=== PATIENT | male | born 1970 | race Caucasian/White ===

== ENCOUNTER → 2019-09-29 | Outpatient (CLI) | payer OTHER ==
[~2019-09-29] MED LIST: ASPIRIN EC81 M1 PO; IBUPROFEN 800800 M1 PO; MULTIVITAMINS PO; TOPROL XL25 MG PO
[2019-09-29 08:46] LABS: HEMATOCRIT 44.7 % (42.0-52.0); HEMOGLOBIN 15.3 gm/dL (14.0-18.0); MCH 29.5 pg (26.0-34.0); MCHC 34.3 g/dL (28.0-37.0); MCV 85.8 fL (80.0-100.0); RBC 5.21 mil/uL (4.50-6.00); WBC 4.1 thou/uL (4.0-11.0)
[2019-09-29 09:00] LABS: ALBUMIN 4.1 g/dL (3.4-5.0); CALCIUM 9.5 mg/dL (8.5-10.1); CREATININE 1.1 mg/dL (0.7-1.3); POTASSIUM 4.7 mmol/L (3.5-5.1); TOTAL BILIRUBIN 1.1 mg/dL (<0.1-1.0); TOTAL PROTEIN 7.1 g/dL (6.4-8.2)
== END ==
LOC: LABMALL 08:10 → CAT 08:10
PROVIDERS: Internal Medicine Cardiovascular Disease
DX: I48.91 Unspecified atrial fibrillation (principal)

== ENCOUNTER 2019-11-14 06:39 | Inpatient (IN) | payer OTHER ==
[~2019-11-14] VITALS: Ht 180.3 cm; Wt 74.9 kg
[2019-11-14 07:14] VITALS: BP 133/75
[2019-11-14 07:21] LABS: ABSOLUTE NEUTROPHILS 2.2 thou/uL (1.4-8.2); BASOPHILS 0.7 % (0.0-2.0); HEMATOCRIT 44.8 % (42.0-52.0); HEMOGLOBIN 15.2 gm/dL (14.0-18.0); LYMPHOCYTES 27.5 % (24.0-44.0); MCH 28.9 pg (26.0-34.0); MCV 85.1 fL (80.0-100.0); MONOCYTES 6.7 % (1.0-8.0); PLATELET COUNT 187 thou/uL (150-400); POLYS 62.1 % (36.0-66.0); RBC 5.27 mil/uL (4.50-6.00); RDW 13.7 % (10.5-14.5); WBC 3.5 thou/uL (4.0-11.0)
[2019-11-14] MEDS ORDERED: DILTIAZEM ER180 M2 PO (07:24)
[2019-11-14] MEDS ORDERED: ELIQUIS5 MG PO (07:27)
[2019-11-14 07:35] LABS: ALBUMIN 4.2 g/dL (3.4-5.0); CREATININE 1.1 mg/dL (0.7-1.3); POTASSIUM 3.9 mmol/L (3.5-5.1); TOTAL BILIRUBIN 0.8 mg/dL (<0.1-1.0); TOTAL PROTEIN 7.5 g/dL (6.4-8.2)
[2019-11-14 07:44] LABS: INR 1.1; PROTIME 10.9 Seconds (9.3-11.4)
[2019-11-14 12:05] VITALS: BP 114/84
--- NOTE | 2019-11-14 13:10 | NUR ---
PT ORIENTED TO ROOM AND UINIT, BED LOW AND LOCKED, SIDE RAILS UPX3, CALL LIGHT IN REACH AND TELE APPLIED. WILL CONTINUE TO ASSESS. FREQUENT VITAL ON PAPER FLOW SHEET.
[2019-11-14 15:00] VITALS: BP 120/70
--- NOTE | 2019-11-14 15:11 | NUR ---
PT OFF BEDREST AND RODOLFO CABA. PT WISHES TO TALK TO WEIGHTS AND MEASURES INSPECTOR BEFOR SIGNING CONSENT FOR PROCEDURE IN AM.
--- NOTE | 2019-11-14 15:46 | NUR ---
DR. SNEED INSTRUCT NO NEED FOR FREQUENT VITAL OR FREQUENT GROIN ASSESSMENT AT THIS POINT S/P INSTRUMENT TESTER VENOUS PUNCTURE BILAT GROINS.
[2019-11-14 20:09] VITALS: BP 111/70
[2019-11-15] VITALS (12 sets, daily range): BP systolic 108–1069; BP diastolic 64–81
--- NOTE | 2019-11-15 04:28 | NUR ---
Pt. rested quietly at intervals during the night when checked on during frequent rounds. He offers no c/o pain or discomfort. Bilateral groin sites are dry and intact.
[2019-11-15 05:58] LABS: HEMATOCRIT 41.6 % (42.0-52.0); HEMOGLOBIN 14.2 gm/dL (14.0-18.0); MCH 29.2 pg (26.0-34.0); MCV 85.8 fL (80.0-100.0); RBC 4.85 mil/uL (4.50-6.00); RDW 13.6 % (10.5-14.5)
[2019-11-15 06:10] LABS: CALCIUM 8.8 mg/dL (8.5-10.1); CREATININE 1.2 mg/dL (0.7-1.3)
--- NOTE | 2019-11-15 10:27 | CATHLAB ---
[facility] [place] [address] INVASIVE PROCEDURE REPORT Name: BECCA MCCABE Room #: 208-P ADM IN M.R.#: [id number] Admission: 11/15/19 Attend Phys: Gurinder Barreto MD Discharge: Date of : 70 Report #: [id number] THIS REPORT FOR: cc: FAM - No family physician/PCP FAM - No family physician/PCP Fabian Barragan MD ~ APPROVED REPORT Study performed: 11/15/2019 07:55:58 Patient Details Patient Status: In-Patient Room #: The patient is a 49 year-old male Event Personnel Fabian Barragan Financial Operations Clerk, Nawaf Babin RN, Clare, Amanda Monitor, Minnie Ruiz RTR Scrub Procedures Performed Art Access - R femoral artery* 07324 Initial Mod Sed Same Phys/QHP Gr5y [id number] Left Heart Cath w/or w/o Coronaries [id number] [facility] Hemostasis with Manual pressure Indication Arrhythmia, Atrial fibrillation, Underwent an EP study for atrial fibrillation, 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 Procedure Narrative The patient was brought urgently to the Cardiac Catheterization Laboratory and was prepped and draped in a sterile manner. The Right Groin^ was infiltrated with 1% Lidocaine subcutaneous anesthesia. A PINNACLE 4FR Sheath #[id number] sheath was inserted into the RFA^. Coronary angiography was performed using coronary diagnostic catheters. The right coronary system was accessed and visualized with a JR 4 catheter. The left coronary system was accessed and visualized with a JL 4 catheter. The left ventricle was accessed and visualized with a Pigtail catheter. Left ventricular/Aortic Valve gradient assessed via catheter pullback. Left ventriculogram was performed in MEYER projection. Hemostasis was obtained with manual pressure following sheath removal without any complications. The patient tolerated the procedure well and there were no complications associated with the procedure. There was no hematoma. [facility] [address] [place] [address] INVASIVE PROCEDURE REPORT Name: BECCA MCCABE Room #: 208-P [facility] IN M.R.#: [id number] Admission: 11/15/19 Attend Phys: Gurinder [facility] Discharge: Date of : 70 Report #: [id number] Intraoperative Conscious Sedation Sedation start time: 08:10 Case end Time: 08:34 Fentanyl 100 mcg Versed 2 mg Fluoro Time: 2.90 minutes Dose: DAP 2492.00 cGycm2 396 mGy Contrast Type and Amount: Omnipaque 85 ml Coronary Angiography The patient's coronary anatomy is right dominant. Diagnostic Cath Left Main Left main artery is a large-caliber vessel, angiographically normal. LAD The LAD has ectatic regions in the proximal and mid segments. Traverses the anterior wall and wraps around the apex. This vessel is patent with no flow-limiting lesions. Diagonal 1 Small-caliber vessel, appears angiographically normal. Diagonal 2 Small-caliber vessel, appears angiographically normal. Circumflex The proximal segment is ectatic. OM1 This is a moderate-sized caliber vessel, supplies several branches as it travels down the lateral wall. This vessel is patent with no flow-limiting lesions. Right Coronary The RCA is a dominant vessel, has an ectatic segment in the proximal region. This vessel is patent with no flow-limiting lesions. R PDA This vessel is patent with no flow-limiting lesions. RPLV This vessel is patent with no flow-limiting lesions. Left Ventriculography The left ventricle is normal in size with normal contractility. The left ventricular ejection fraction is estimated to be 55-60%. Hemodynamics The aortic pressure is 104/73 mmHg with a mean of 85 mmHg. The left ventricular pressure is 113/8 mmHg with a mean of mmHg. The left ventricular end diastolic pressure is 17 mmHg. Conclusion 1. Ectatic segments noted in the epicardial vessels. 2. No evidence for obstructive disease. [facility] [address] [place] [address] INVASIVE PROCEDURE REPORT Name: BECCA MCCABE Room #: 208-P [facility] IN M.R.#: [id number] Admission: 11/15/19 Attend Phys: Gurinder Barreto Discharge: Date of : 70 Report #: [id number] 3. Normal LV systolic function. 4. Recommend risk factor management. <ELECTRONICALLY SIGNED> By: Fabian Barragan MD 11/15/19 1025 1025 1025 Fabian Barragan MD /INF
--- NOTE | 2019-11-15 17:38 | NUR ---
RECEIVED PT'S CARE AROUND 0715; PT. ON BED; A0X4; NO C/O PAIN; R & L GROIN AREA INTACT; NO HEMATOMA; RECEIVED CALLED FROM CARDIAC CATH AROUND 0730; AM MEDICATION GIVEN EARLIER; GONE FOR PROCEDURE BEFORE 0800; RETURN BACK BEFORE 0900; R. GROIN AREA C/D/I; NO HEMATOMA; EDUCATED ABOUT HOLDING PRESSURE WHEN COUGHING; BED REST FOR 3H; D/C TINEO AFTER BED REST; AROUND 1320; PT. ABLE TO VOID 400 ML AFTER D/C TINEO; NO HEMATOMA THROUGH THE AFTERNOON; SR ON THE MONITOR; ASSESSMENT CHARGED; FOLLOWING POC; WILL PASS ON REPORT;
[2019-11-16] VITALS (13 sets, daily range): BP systolic 103–116; BP diastolic 63–76
--- NOTE | 2019-11-16 03:26 | NUR ---
ASSESSMENT DOCUMENTED.PT BEEN RESTING IN NO ACUTE DISTRESS.A/OX4.VSS.POST CARDIC CATH,RIGHT GROIN W/O HEMATOMA OR ACTIVE BLEEDING.UP AD INGRID TO BR.NPO AFTER MIDNOC FOR POSSIBLE ABLATION.SR/SB/1DEG ON MONITOR..DENIES CHEST PAIN OR ANY PAIN.WILL CONT TO MONITOR PER POC.
[2019-11-16 05:40] LABS: HEMATOCRIT 39.3 % (42.0-52.0); HEMOGLOBIN 13.4 gm/dL (14.0-18.0); MCH 29.3 pg (26.0-34.0); MCHC 34.2 g/dL (28.0-37.0); MCV 85.8 fL (80.0-100.0); RBC 4.58 mil/uL (4.50-6.00); RDW 13.3 % (10.5-14.5); WBC 5.7 thou/uL (4.0-11.0)
[2019-11-16 06:01] LABS: CALCIUM 8.8 mg/dL (8.5-10.1); CREATININE 1.1 mg/dL (0.7-1.3); POTASSIUM 3.7 mmol/L (3.5-5.1)
--- NOTE | 2019-11-16 19:43 | NUR ---
RECEIVED PT'S CARE AROUND 0710; PT. ON BED; AOX4; MANUFACTURING DESIGN ENGINEER NURSE RECEIVED CALL FROM HOLDING; AM MEDICATION GIVEN EARLIER; NO C/O PAIN; GONE FOR PROCEDURE BEFORE 0800; PT. BACK AFTER 1500; R & L SIDE INTANTC; NO HEMATOMA; C/O PAIN OVER SHOULDER; PER REPORT PAIN MEDICATION GIVEN BEFORE ARRIVAL; PT. ST. DECREASE PAIN; DROWSY; EDUCATED ABOUT BED REST FOR 6H; HOLDING PRESSURE IF COUGHING; ST. UNDERSTANDING; VS WNL; C/O PAIN LATER AFTERNOON OVER KNEES; REFUSED PAIN MEDICATION; ST. PAIN IS DUE TO WEATHER CHANGE; THROUGH THE AFTERNOON NO HEMATOMA; SR ON THE MONITOR; ASSESSMENT CHARGED; FOLLOWING POC; PASSED ON REPORT;
[2019-11-17 04:11] VITALS: BP 98/60
--- NOTE | 2019-11-17 05:26 | NUR ---
PT C/O PAIN TO CHEST AREA,HOLDING LEFT CHEST.PT DENIES SOA OR ANY OTHER ASSOCIATED SYMPTOMS BUT STATED IT FEELS LIKE PAIN HE FEELS WHEN HE IS GETTING OUT OF NORMAL HEART RHYTHM.ON MONITOR.NSR.EKG COMPLETED,DR MCGHEE NOTIFIED OF THE EKG RESULTS,PER DR MCGHEE PAIN COULD BE FROM ABLATION,PT UPDATED ON 'S RECOMMENDATION.
[2019-11-17 08:00] VITALS: BP 103/63; BP 107/72
--- NOTE | 2019-11-17 08:44 | EKG ---
[facility] [place] [address] ELECTROCARDIOGRAM REPORT Name: BECCA MCCABE Room #: 208-P ADM IN M.R.#: [id number] Admission: 11/15/19 Attend Phys: Gurinder Barreto MD Discharge: Date of : 70 Report #: [id number] THIS REPORT FOR: cc: MELANY - Veronica family physician/PCP MELANY - Veronica family physician/PCP Feng Cagle MD [facility] ~ THIS REPORT FOR: //name// [facility] Test Date: 2019-11-17 Test Time: 05:04:49 Pat Name: BECCA MCCABE Department: Room: 208 P Gender: M Sheet Metal Welder: MWPATY : 1970 Requested By: Gurinder Barreto Order Number: [id number] MD: Feng Cagle Measurements Intervals [place] Rate: 62 P: 71 WY: 206 QRS: 80 QRSD: 89 T: 46 QT: 411 QTc: 418 Interpretive Statements Sinus rhythm Borderline prolonged WY interval Compared to ECG 04/07/2011 09:18:21 Sinus bradycardia no longer present Electronically Signed On 11-17-2019 8:43:04 CDT by Feng Cagle [email or web address] <ELECTRONICALLY SIGNED> By: Feng Cagle MD, [facility] 11/17/19 0843 0504 0504 Feng Cagle MD, [facility] /EPI
--- NOTE | 2019-11-17 09:32 | 2DMMODE ---
[facility] [address] [place] [address] 2 D/M-MODE ECHOCARDIOGRAM Name: BECCA MCCABE Room #: 208-P ADM IN M.R.#: [id number] Admission: 11/15/19 Attend Phys: Gurinder Barreto MD Discharge: Date of : 70 Report #: [id number] THIS REPORT FOR: cc: FAM - No family physician/PCP FAM - No family physician/PCP Feng Cagle MD [facility] ~ APPROVED REPORT Study performed: 11/17/2019 08:49:55 EXAM: Limited 2D, Doppler, and color-flow Echocardiogram Patient Location: Bedside Room #: 208 Status: routine BSA: 1.92 HR: 69 bpm BP: 98/60 mmHg Rhythm: NSR Other Information Study Quality: Adequate Indications Post ablation, hx afib 2D Dimensions RVDd: 28.42 mm IVSd: 8.89 (7-11mm) LVOT Diam: 23.25 (18-24mm) LVDd: 41.17 mm PWd: 8.02 (7-11mm) Ascending Ao: 30.56 (22-36mm) LVDs: 28.90 (25-40mm) Aortic Root: 33.08 mm IVC: 25.00 mm Volumes Left Atrial Volume (Systole) Single Plane 4CH: 21.75 mL Single Plane 2CH: 36.70 mL LA ESV Index: 19.00 mL/m2 Aortic Valve AoV Peak Farhad.: 1.14 m/s AO Peak Gr.: 5.23 mmHg LVOT Max P.83 mmHg LVOT Max V: 0.98 m/s BRYANT Vmax: 3.63 cm2 Mitral Valve [facility] [address] [place] [address] 2 D/M-MODE ECHOCARDIOGRAM Name: BECCA MCCABE Room #: 208-P [facility] IN [facility].#: [id number] Admission: 11/15/19 Attend Phys: Gurinder Barreto Discharge: Date of : 70 Report #: [id number] E/A Ratio: 1.9 MV Decel. Time: 244.78 ms MV E Max Farhad.: 0.97 m/s MV A Farhad.: 0.52 m/s MV PHT: 70.99 ms Pulmonary Valve PV Peak Farhad.: 0.82 m/s PV Peak Gr.: 2.68 mmHg Tricuspid Valve TR Peak Farhad.: 2.34 m/s RAP Estimate: 10.00 mmHg TR Peak Gr.: 21.95 mmHg PA Pressure: 32.00 mmHg Left Ventricle The left ventricle is normal size. There is normal left ventricular wall thickness. The left ventricular systolic function is normal. The left ventricular ejection fraction is within the normal range. LVEF is 60%. The left ventricular diastolic function is normal. Right Ventricle The right ventricle is normal size. The right ventricular systolic function is normal. Atria The left atrium size is normal. The right atrium size is normal. Aortic Valve The aortic valve is normal in structure. No aortic regurgitation is present. There is no aortic valvular stenosis. Mitral Valve The mitral valve is normal in structure. Trace to mild mitral regurgitation. No evidence of mitral valve stenosis. Tricuspid Valve The tricuspid valve is normal in structure. Trace to mild tricuspid regurgitation. PAP is estimated at 25 mmHg. Pulmonic Valve Pulmonic valve is not well visualized. Trace pulmonic regurgitation. Great Vessels The aortic root is normal in size. IVC is dilated and collapses [facility] [place] [address] 2 D/M-MODE ECHOCARDIOGRAM Name: BECCA MCCABE Room #: 208-P ADM IN .R.#: [id number] Admission: 11/15/19 Attend Phys: Gurinder Barreto Discharge: Date of : 70 Report #: [id number] >50% with inspiration. Pericardium There is no pericardial effusion. <Conclusion> Abbreviated echocardiogram 1. Normal echocardiogram with Doppler. Ejection fraction 60%. 2. Pulmonary artery pressure of 25 mmHg. 3. No pericardial effusion. <ELECTRONICALLY SIGNED> By: Feng Cagle MD, [facility] 11/17/19929 9 0930 Feng Cagle MD, FACC /INF
[2019-11-17 12:10] VITALS: BP 104/67
[2019-11-17 14:20] VITALS: BP 155/55
--- NOTE | 2019-11-17 14:28 | D ---
[facility] [place] [address] DISCHARGE SUMMARY Name: BECCA MCCABE Room #: 208-P ADM IN M.R.#: [id number] Admission: 11/15/19 Attend Phys: Gurinder Barreto MD Discharge: Date of : 70 Report #: [id number] THIS REPORT FOR: cc: MELANY - No family physician/PCP MELANY - No family physician/PCP Gurinder Barreto MD ~ THIS REPORT FOR: //name// CC: MELANY physician/PCP Gurinder Barreto DISCHARGE DIAGNOSES: 1. 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 3. Atrial fibrillation. PROCEDURES PERFORMED: VT ablation and SVT ablation. HISTORY OF PRESENT ILLNESS: The patient is a 49-year-old male who has a history of atrial fibrillation. He has been having increased episodes of what he believes was atrial fibrillation. He also noted that he has frequent episodes of very rapid palpitations with associated presyncopal symptoms. He was brought in for an atrial fibrillation ablation, but I decided to perform a diagnostic EP study prior to this procedure and I induced ventricular tachycardia. As such, the AFib ablation was aborted and the procedure was cancelled. The patient the following day underwent diagnostic cardiac catheterization showing normal coronary arteries. He has had prior echocardiograms showing a structurally normal heart of both the right and left ventricles. I did find some old EKGs from 2010, which appeared to also show this ventricular tachycardia that was quite narrow and was confused for atrial fibrillation with aberration. Of note, in this EKG did appear that he was in AFib as well as having ventricular tachycardia; therefore, he had dual tachycardias. Following his normal catheterization, he was brought back the following day for a VT ablation. This VT was again easily inducible. I initially mapped to the left ventricle, but was not early and therefore, it was mapped to the right ventricle and was found to have a very septal location almost at the level of where he would perform an AVNRT ablation. Ablation at this site resulted in the VT no longer being inducible. We continued performing an EP study and he was found to have typical AV lynette reentrant tachycardia, which was also successfully ablated and further testing was performed and we could no longer induce VT or AVNRT. HOSPITAL COURSE: The patient was monitored overnight. Overnight, he did have a little bit of chest discomfort, which was likely from the ablation. EKGs showed no evidence of ischemia and a limited echo was performed showing a normal EF and no effusion. As such, he was deemed stable for discharge home. He will go home on aspirin therapy. We will not reinitiate anticoagulation. We will stop his [facility] [address] [place] [address] DISCHARGE SUMMARY Name: BECCA MCCABE Room #: 208-P [facility] IN M.R.#: [id number] Admission: 11/15/19 Attend Phys: Gurinder Barreto MD Discharge: Date of : 70 Report #: [id number] diltiazem. He will follow up in 2 weeks with an office visit. At that time, we will discuss implantation of a loop recorder and we will also discuss obtaining an outpatient cardiac MRI. <ELECTRONICALLY SIGNED> By: Gurinder Barreto MD 11/17/19 1428 1341 1402 Gurinder Barreto MD /nt
--- NOTE | 2019-11-17 15:42 | NUR ---
RECEIVED PT'S CARE AROUND 0710; PT. ON BED; AOX4; DURING ASSESSMENT C/O OVER SHOULDER; REFUSED PRN PAIN MEDICATION; R & L SIDE GROIN I/D; AM MEDICATION GIVEN; EDUCATED ABOUT D/C PROCESS; UNDERSTANDING; ASSESSMENT CHARGED; FOLLOWED POC;
[2019-11-17 16:10] VITALS: BP 116/76
[2019-11-17 16:17] VITALS: BP 104/67
--- NOTE | 2019-11-27 08:29 | P ---
[facility] [place] [address] PROCEDURE REPORT Name: BECCA MCCABE Room #: 208-P [facility] IN M.R.#: [id number] Admission: 11/15/19 Attend Phys: Gurinder Barreto MD Discharge: 11/17/19 Date of : 70 Report #: [id number] THIS REPORT FOR: cc: MELANY - Veronica family physician/PCP FAM - No family physician/PCP Gurinder Barreto MD ~ CC: MELANY physician/PCP Gurinder Barreto VENTRICULAR TACHYCARDIA ABLATION PREOPERATIVE DIAGNOSIS: Sustained monomorphic VT. HISTORY: The patient is a 49-year-old male with a supposed history of atrial fibrillation. He came in 2 days ago for an EP study and AFib ablation. The patient was found to have sustained monomorphic ventricular tachycardia. When I reviewed his EKGs from 2010, it appeared that he did have evidence of VT at that time as well. His ablation 2 days ago was canceled and he underwent a diagnostic cardiac catheterization yesterday showing normal coronary arteries. He has had a recent echocardiogram showing normal LV and RV size and function. He is here for EP study and VT ablation. PROCEDURES PERFORMED: 1. VT ablation, CPT code 12422. 2. EP with left atrial pacing and recording, CPT code 55886. 3. Program stimulation pacing after IV drug infusion, CPT code 73508. 4. Intracardiac echo, CPT code 90466. 5. Arterial line placement, CPT code 78608. ANESTHESIA: The patient underwent general anesthesia with no anesthesia related complications. DESCRIPTION OF PROCEDURE: The patient underwent informed consent. We discussed the details of the procedure including the risks which include but not limited to bleeding, vascular damage, stroke, VT, damage to the lower [place] conduction system requiring permanent pacemaker as well as cardiac perforation. He understood these risks and is willing to proceed. The patient was brought to the EP laboratory in a fasting and nonsedated state and prepped and draped in a sterile fashion. Next, I obtained access to the right femoral artery x 1, placing an 8-Vietnamese short sheath using the modified Seldinger technique. In the right femoral vein, I placed an 8-Vietnamese and two 6-Vietnamese short sheaths. In the left femoral vein, I placed a 9-Vietnamese short sheath and a 7-Vietnamese short sheath. Next, I placed 3 quadripolar catheters at the HRA, His and RV positions and a decapolar catheter into the coronary sinus. An ICE catheter was placed into the right atrium and using intracardiac ultrasound, I created a 3D geometry of the right ventricle, ascending aorta, [facility] [address] [place] [address] PROCEDURE REPORT Name: BECCA MCCABE Room #: 208-P [facility]..#: [id number] Admission: 11/15/19 Attend Phys: Gurinder Barreto MD Discharge: 11/17/19 Date of : 70 Report #: [id number] aortic valve and the left ventricular outflow tract and left ventricle including papillary muscles. At baseline, the patient was in sinus rhythm with a sinus cycle length of 1012 milliseconds, NV interval 155 milliseconds, QRS duration 87 milliseconds, QT interval 400 milliseconds, AH interval 125 milliseconds and HV interval 35 milliseconds. Next, atrial burst pacing was performed and again with atrial pacing as we saw on the previous EP study, the patient would develop left bundle branch aberration with identical morphology to his sustained ventricular tachycardia. Again, this aberration was left bundle branch block, transitions in V4 and negative in II, III and aVF. Next, ventricular burst pacing was again performed and there was no evidence of VA conduction. Of note, with bundle branch block aberration, the His signal was arising 40 milliseconds after the initiation of the QRS complex. Obviously, I was thinking pathway on this and the previous case, but this was clearly ventricular tachycardia on the last case. There was obvious VA dissociation. Off isoproterenol, I could not induce ventricular tachycardia. Isoproterenol infusion was initiated at 2 mcg per minute and VT was induced with a tachycardia cycle length of 280 milliseconds. Again, the VT morphology was left bundle branch block transitions in V4 and was negative in II, III and aVF. There were periods of time where this was demonstrated 1:1 conduction, but if I would pace the atrium, I could then easily dissociate the VT. I tried to entrain this today and during the last case and every time I would attempt to entrain this from the right ventricle, this would terminate. I was hoping to make a diagnosis of bundle branch reentrant VT with entrainment, but this was not possible. On isoproterenol, the VT was quite rapid at 280 milliseconds and there was clearly a period of 1:1 association. I decided to turn off isoproterenol and this allowed the VT to slow down at around 335 milliseconds and off isoproterenol, the VT demonstrated clear VA dissociation. I decided to initially map the left ventricle. Although this was a left bundle branch block morphology, this did not seem to be a bundle branch reentrant VT given the fact that the patient had a negative HV interval and therefore I thought that this possibly was a fascicular type VT that was possibly very septal along the left ventricle and potentially giving us a left bundle branch block morphology. Therefore, the patient was systemically heparinized and I went retrograde into the left ventricle and mapped the VT over here. Pace morphologies were very late and the VT was also very late from this region as well. Everything appeared to be earliest along the LV septum, but it quickly became evident that this was likely right-sided. Therefore, I pulled my ablation catheter from the left ventricle into the right ventricle and started mapping. In order to induce the VT, I did have to put the patient back on 1 mcg per minute of isoproterenol. I started performing pace maps along the RV septum and I was getting pace maps around 80-90% match. My best pace map was around 92%. I had some difficulty getting good contact in this region. Therefore, I did use an Agilis to give me some more reach in this region. The area of earliest activation of the VT was also very close to my best pace maps. I [facility] [address] [place] [address] PROCEDURE REPORT Name: BECCA MCCABE DAVE Room #: 208-P [facility] IN M.R.#: [id number] Admission: 11/15/19 Attend Phys: Gurinder Barreto MD Discharge: 11/17/19 Date of : 70 Report #: [id number] performed 5 ablation lesions at this site and the VT was still inducible. Therefore, I performed additional mapping using the Agilis catheter while the patient was in VT and performed some additional pace maps. The site of successful ablation was very septal right ventricle. There were no clear right bundle branch potentials. Actually, the right bundle branch potentials and His were approximately 20 mm above my area of successful ablation. Fluoroscopically, the site where I successfully eliminated the VT looked to be just anterior to where he would do a slow pathway modification. In fact, the signal where I successfully terminated the VT showed a very small far field atrial signal and the proximal portion of my ablation catheter showed a larger atrial signal which would look like a good initial placed start slow pathway modification, which was interesting. I performed a total of 6-7 ablation lesions at this site around 50 emerson. After I completed my ablation at this location, the patient no longer had inducible ventricular tachycardia and also very interesting he would no longer have this aberration noted. SVT ablation: I kept performing atrial burst pacing on isoproterenol 1 mcg per minute and then we induced SVT with a septal VA time of 35 milliseconds and this would terminate with a single atrial electrogram consistent with typical AV lynette reentrant tachycardia. As such, SVT ablation was performed. I performed a total of 3 ablation lesions at 35 emerson along the slow pathway region. Fortunately, during each of my 3 manning, I had great junctionals, each lasting approximately 60 seconds throughout this 60-second manning. Again, a repeat EP study was performed and isoproterenol was reinitiated. I could no longer induce typical AV lynette reentrant tachycardia nor could I induce sustained monomorphic ventricular tachycardia nor was I seeing this aberration any further. AV block was now noted at 300 milliseconds. Atrial ERP was noted at 210 milliseconds at [address] cycle length. Ventricular extrastimuli were delivered and VERP was noted at 240 milliseconds at the [address] cycle length. Ventricular stimulation was also performed to see if I could induce any other forms of sustained monomorphic ventricular tachycardia and he was non-inducible. Isoproterenol was turned off and the patient was in sinus rhythm with sinus cycle length of 610 milliseconds, NV interval 140 milliseconds, QRS duration 80 milliseconds, QT interval 325 milliseconds, AH interval 90 milliseconds, HV interval 40 milliseconds. As such, the procedure was concluded. Using intracardiac ultrasound, I verified there was no pericardial effusion. The patient received systemic protamine and once the ACT was within acceptable range, catheters and sheaths were pulled and hemostasis was obtained. CONCLUSIONS: 1. Successful ablation of sustained monomorphic ventricular tachycardia. This ventricular tachycardia was arising from the septal right ventricle. 2. 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 3. Normal SA lynette function. 4. Normal AV lynette function. [facility] [address] [place] [address] PROCEDURE REPORT Name: BECCA MCCABE Room #: 208-P [facility] IN M.R.#: [id number] Admission: 11/15/19 Attend Phys: Gurinder Barreto MD Discharge: 11/17/19 Date of : 70 Report #: [id number] 5. Normal His-Purkinje function. 6. No other inducible arrhythmias on or off isoproterenol. 7. No inducible monomorphic ventricular tachycardia with ventricular stimulation protocol post-VT ablation. RECOMMENDATIONS: 1. The patient will be monitored overnight. 2. We will discuss implantation of an implantable loop recorder with the patient. 3. We will discuss outpatient cardiac MRI for evaluation of his right ventricular and left ventricular structure to rule out any evidence of infiltrative process or myocardial fibrosis. <ELECTRONICALLY SIGNED> By: Gurinder Barreto MD 11/27/19 0829 1043 1320 Gurinder Barreto MD /nt
--- NOTE | 2019-11-27 08:29 | P ---
[facility] [place] [address] PROCEDURE REPORT Name: BECCA MCCABE Room #: 208-P [facility] IN M.R.#: [id number] Admission: 11/15/19 Attend Phys: Gurinder Barreto MD Discharge: 11/17/19 Date of : 70 Report #: [id number] THIS REPORT FOR: cc: MELANY - Veronica family physician/PCP FAM - No family physician/PCP Gurinder Barreto MD ~ CC: MELANY physician/PCP Gurinder Barreto DATE OF SERVICE: 11/15/2019 PREOPERATIVE DIAGNOSIS: Atrial fibrillation. POSTOPERATIVE DIAGNOSIS: Sustained monomorphic ventricular tachycardia. PROCEDURES PERFORMED: 1. EP study, CPT code 17752. 2. Left atrial pacing and recording, CPT code 62166. 3. Program stimulation pacing after IV drug infusion, CPT code 04085. 4. Intracardiac ultrasound, CPT code 58808. HISTORY: The patient is a 49-year-old with a history of what was believed to be atrial fibrillation diagnosed in 2010. The patient's most recent echo shows a normal ejection fraction. He has been having increased palpitations. He also reports occasionally having very severe palpitations that are associated with presyncopal symptoms. He is here for AFib ablation. ANESTHESIA: The patient underwent general anesthesia with no anesthesia related complications. DESCRIPTION OF PROCEDURE: The patient underwent informed consent. We discussed the details of the procedure including the risks, which include but not limited to bleeding, vascular damage, stroke, [place] as well as damage to the sob[place] conduction system requiring permanent pacemaker. He understood these risks and is willing to proceed. The patient was brought to the EP laboratory in a fasting and sedated state, prepped and draped in a sterile fashion. I obtained access to the right femoral vein x 3 and the left femoral vein x 1. Under fluoroscopy, I placed a decapolar catheter into the coronary sinus and a quadripolar catheter into the high right atrium and the right ventricle. I also placed an intracardiac ultrasound camera into the right atrium for transseptal procedure. Given his history of palpitations suggestive of possible SVT as a possible trigger of his AFib, I decided to perform an EP study prior to performing his ablation. We discussed that if we found SVT, we would ablate this and he may not need an AFib ablation. [facility] [address] [place] [address] PROCEDURE REPORT Name: BECCA MCCABE Room #: 208-P [facility] IN M.R.#: [id number] Admission: 11/15/19 Attend Phys: Gurinder Barreto MD Discharge: 11/17/19 Date of : 70 Report #: [id number] PROCEDURE DESCRIPTION: A basic EP study. At baseline, the patient was in sinus rhythm with a sinus cycle length of 1070 milliseconds, NH interval 180 milliseconds, QRS duration 75 milliseconds, QT interval 450 milliseconds. Next, atrial burst pacing was performed and AV block was noted at 350 milliseconds. Of note, when I would pace the atrium, the patient would develop left bundle branch block aberration. Atrial ERP was 280 milliseconds at a [address] cycle length. Next, ventricular pacing was performed and there was evidence of no VA conduction. Next, isoproterenol was initiated at 2 mcg per minute and again aggressive pacing was performed and no SVT could be induced. I increased the isoproterenol to 4 mcg per minute and additional pacing was performed. On isoproterenol 4, his AV block was noted at 230 milliseconds and then I gave a double atrial extrastimuli. At 280 milliseconds at a [address] cycle length, unexpectedly the patient went into sustained ventricular tachycardia with clear VA dissociation. The tachycardia cycle length was 300 milliseconds and it was a left bundle branch block morphology with a transition in V4 and it was negative in leads II, III and aVF. I was able to pace terminate this by aggressively pacing the atrium. This was obviously an unexpected finding. I therefore went and pulled some of his old EKGs from 04/06/2011. Looking at several of these EKGs, it appeared that he was likely in ventricular tachycardia at that time as well. This QRS morphology is not very wide. Therefore, it makes sense that it could have been confused for atrial fibrillation. In fact, while he was in VT, there were periods of time where this would terminate and he was also clearly in atrial fibrillation at that time. So we were dealing with a double tachycardia. I turned off the IV isoproterenol and again performed atrial burst pacing and the patient would develop aberration that was identical to the ventricular tachycardia. I would start pacing and the aberration would go away. If I would pace further and more rapidly, the patient would go into sustained ventricular tachycardia with a VT morphology 100% identical to his aberration, which was quite unusual. At this time, I decided to put up a His catheter to see if I could measure a His bundle or a right bundle branch block potential. The His bundle and right bundle branch potentials during ventricular tachycardia were not preceding the surface QRS. It appeared it was likely buried within the QRS. Of note, his AH interval was noted at 110 milliseconds and he had a normal HV interval of 40 milliseconds. Of note, this VT was very, very easily inducible. It would sustain until I would terminate it with atrial burst or ventricular burst pacing. At this point, the cause of his VT was unclear. He has evidence of a structurally normal heart on a prior echocardiogram. He has no known coronary artery disease, although there is a family history of CAD. He did not have a His or a right bundle branch potential preceding this, which made me think that bundle branch reentry was unlikely. Other potential arrhythmias could be a fascicular VT, which would also be atypical given the left bundle branch block morphology. At this point, as we were prepped mostly for either an SVT or an AFib ablation, I decided that we should stop the procedure at this point and he would need further cardiovascular workup including a diagnostic cardiac catheterization. Post-EP study, the patient was in sinus rhythm with a sinus [facility] [address] [place] [address] PROCEDURE REPORT Name: BECCA MCCABE DAVE Room #: 208-P [facility] IN M.R.#: [id number] Admission: 11/15/19 Attend Phys: Gurinder Barreto MD Discharge: 11/17/19 Date of : 70 Report #: [id number] cycle length of 805 milliseconds, NH interval 150 milliseconds, QRS duration 80 milliseconds, QT interval 400 milliseconds, AH interval 105 milliseconds, HV interval of 42 milliseconds. FINDINGS: 1. Induction of sustained monomorphic ventricular tachycardia, possibly related to a bundle branch reentry VT versus fascicular VT versus scar mediated VT. 2. Normal SA lynette function. 3. Normal AV lynette function. 5. Normal His-Purkinje function. 6. No inducible SVT or atrial fibrillation. INTERVAL NOTE: The patient will be admitted to the hospital and we will make plans for Dr. Barragan to perform diagnostic cardiac catheterization tomorrow. <ELECTRONICALLY SIGNED> By: Gurinder Barreto MD 11/27/19 0829 [id number] Gurinder Barreto MD /nt
== END 2019-11-17 16:54 | disposition home or self-care (01) | DRG 274 ==
LOC: CATH → 2N 12:14 → CATH 12:59 → 2N 11-15 09:07
PROVIDERS: Internal Medicine Cardiovascular Disease; ADMIT Internal Medicine Cardiovascular Disease
PROC: 4A0234Z Measurement of Cardiac Electrical Activity, Percutaneous Approach (ICD-10-PCS; principal; 2019-11-14)
PROC: 02583ZZ Destruction of Conduction Mechanism, Percutaneous Approach (ICD-10-PCS; principal; 2019-11-14)
PROC: 4A023FZ Measurement of Cardiac Rhythm, Percutaneous Approach (ICD-10-PCS; principal; 2019-11-14)
PROC: 02K83ZZ Map Conduction Mechanism, Percutaneous Approach (ICD-10-PCS; principal; 2019-11-14)
PROC: B2111ZZ Fluoroscopy of Multiple Coronary Arteries using Low Osmolar Contrast (ICD-10-PCS; 2019-11-15)
PROC: B2151ZZ Fluoroscopy of Left Heart using Low Osmolar Contrast (ICD-10-PCS; 2019-11-15)
PROC: 4A023N7 Measurement of Cardiac Sampling and Pressure, Left Heart, Percutaneous Approach (ICD-10-PCS; 2019-11-15)
DX: I47.1 Supraventricular tachycardia (principal); I48.91 Unspecified atrial fibrillation; I45.19 Other right bundle-branch block; I47.2 Ventricular tachycardia
CPT/HCPCS: 10081; 62110; 62900; 65040; 70005